=== PATIENT | male | born 1995 | race Caucasian/White ===

== ENCOUNTER → 2016-09-07 | Outpatient (CLI) | payer OTHER ==
--- NOTE | 2016-09-08 12:51 | SLEEPCENT ---
DATE OF PROCEDURE: 09/07/2016 REQUESTING PROVIDER: Katerin Bueno NP INTERPRETATION: Nocturnal polysomnography was performed due to concern for the obstructive sleep apnea syndrome in this patient with a history of excessive somnolence and morning headaches with nonrestorative sleep. 7 hours and 33 minutes of data were reviewed. There were 411 minutes of sleep identified. Sleep latency was normal at 19 minutes. Rapid eye movement (REM) latency was delayed at 297 minutes. Sleep architecture was fair with minimal fragmentation. Two REM periods were appreciated. Overall sleep efficiency 91.9%. The patient's electrocardiogram (EKG) showed a sinus rhythm with an average heart rate of 57 beats per minute. Electroencephalogram (EEG) showed essentially normal waveforms for awake and sleep. No focal events were identified. There was only one respiratory event identified of 10 seconds in duration or greater for an apnea-hypopnea index of 0.1, well within normal limits. Some snoring was appreciated. Arousals from respiratory events occurred 1.3 times per hour when arousals from snoring were included. There was some limb activity noted, but limb movement arousal index was only 4.4. Oxygen saturations remained normal. IMPRESSION: Normal nocturnal polysomnography with snoring.
== END ==
LOC: M SLEEP 19:45
PROVIDERS: ATTEND Nurse Practitioner Adult Health
DX: R06.83 Snoring (principal)

== ENCOUNTER 2016-12-02 17:58 | Emergency (ER) | payer OTHER ==
[~2016-12-02] VITALS: Ht 172.7 cm; Wt 86.0 kg
[2016-12-02] MEDS ORDERED: SUMA50TA2 PO (18:13)
[2016-12-02] MEDS ORDERED: PRAZ2CAP PO (18:13)
[2016-12-02] MEDS ORDERED: TOPA100T12 PO (18:13)
[2016-12-02] MEDS ORDERED: FLUO20CA8 PO (18:13)
[2016-12-02] MEDS ORDERED: OMEP20CA3 PO (18:13)
[2016-12-02] MEDS ORDERED: ESTR1TAB PO (18:13)
[2016-12-02] MEDS ORDERED: LUNE2TAB23 PO (18:13)
[2016-12-02] MEDS ORDERED: MELA3TAB49 PO (18:13)
[2016-12-02] MEDS ORDERED: SPIR50TA2 PO (18:13)
[2016-12-02 19:33] LABS: INR 1.07
[2016-12-02 19:47] LABS: BASO % 0.6 % (0.0-1.0); EOS # 0.2 K/mm3 (0.0-0.50); EOS % 2.2 % (0.0-3.0); LARGE UNSTAINED CELL # 0.1 K/mm3 (0.0-0.4); LARGE UNSTAINED CELL % 1.3 % (0.0-4.0); LYMPH # 1.9 K/mm3 (1.5-6.5); LYMPH % 19.4 % (24.0-44.0); MEAN CORPUSCULAR HEMOGLOBIN 32.2 pg (27.0-33.0); MEAN CORPUSCULAR HGB CONC 34.1 g/dl (32.0-36.5); MEAN CORPUSCULAR VOLUME 94.3 fl (80.0-96.0); MONO # 0.5 K/mm3 (0.0-0.8); MONO % 5.6 % (0.0-5.0); NEUTROPHILS # 6.4 K/mm3 (1.8-7.7); NEUTROPHILS % 70.9 % (36.0-66.0); PLATELET COUNT, AUTOMATED 199 k/mm3 (150-450); RED CELL DISTRIBUTION WIDTH 12.3 % (11.5-14.5)
[2016-12-02 19:57] LABS: ANION GAP 7 MEQ/L (8-16); BLOOD UREA NITROGEN 20 MG/DL (7-18); CALCIUM LEVEL 9.1 MG/DL (8.5-10.1); CARBON DIOXIDE LEVEL 23 MEQ/L (21-32); CHLORIDE LEVEL 112 MEQ/L (98-107); CREATININE FOR GFR 1.31 MG/DL (0.70-1.30); GLOMERULAR FILTRATION RATE > 60.0 (>60); GLUCOSE, FASTING 84 MG/DL (70-105); POTASSIUM SERUM 4.1 MEQ/L (3.5-5.1); SODIUM LEVEL 142 MEQ/L (136-145)
--- NOTE | 2016-12-02 22:07 | ECGEPIP ---
Stationary ECG Study [facility] - ED Test Date: 2016-12-02 Pat Name: MARVIN ZAPATA Department: Room: - Gender: M [employer]: mr : 1995 Requested By: PRIYANK Thompson Order Number: [id number] Reading MD: Ludmila Escobar Measurements Intervals [place] Rate: 63 P: 42 [place]: 145 QRS: 75 QRSD: 87 T: 37 QT: 392 QTc: 402 Interpretive Statements SINUS RHYTHM WITH SINUS ARRHYTHMIA NO PRIOR FOR COMPARISON Electronically Signed On 12-02-2016 22:06:47 EDT by Ludmila Escobar
[2016-12-02 23:07] VITALS: BP 111/58
--- NOTE | 2016-12-03 01:13 | REP ---
Clinical: Chest pain . Comparison: None . Technique: PA and lateral. Findings: The mediastinum and cardiac silhouette are normal. The lung kilpatrick are clear and without acute consolidation, effusion, or pneumothorax. The skeletal structures are intact and normal. Impression: 1. No acute cardiopulmonary process. Signed by Hai Miller MD 12/03/2016 01:05 A
== END 2016-12-02 23:25 | disposition home or self-care (01) ==
LOC: M ED 17:58
DX: R07.89 Other chest pain (principal); I49.9 Cardiac arrhythmia, unspecified; F32.9 Major depressive disorder, single episode, unspecified; F41.9 Anxiety disorder, unspecified; F17.210 Nicotine dependence, cigarettes, uncomplicated; Z79.899 Other long term (current) drug therapy

== ENCOUNTER → 2017-01-12 | Outpatient (REF) | payer OTHER ==
[~2017-01-12] MED LIST: ESTR1TAB PO; FLUO20CA8 PO; LUNE2TAB23 PO; MELA3TAB49 PO; OMEP20CA3 PO; PRAZ2CAP PO; SPIR50TA2 PO; SUMA50TA2 PO; TOPA100T12 PO
== END ==
LOC: M SMT 17:18
PROVIDERS: ATTEND Nurse Practitioner Women's Health
DX: N50.819 Testicular pain, unspecified (principal)
CPT/HCPCS: 81001; 87086; G0463

== ENCOUNTER → 2017-01-14 | Outpatient (CLI) | payer OTHER ==
--- NOTE | 2017-01-14 10:10 | REP ---
SCROTAL ULTRASOUND: Real-time sonographic evaluation of the scrotum and contents performed. The testicles are normal in size and echotexture, right testicle measuring 4.3 x 1.9 x 2.8 cm and the left testicle 4.3 x 2.0 x 2.6 cm. There is no testicular mass or torsion. Blood flow is seen in each testicle with duplex Doppler evaluation, RI right testicle is 0.57 and left testicle is 0.55. Right epididymis is unremarkable. Left epididymis demonstrates multiple tiny cysts up to 3 mm in diameter. There are very small bilateral hydroceles. IMPRESSION: Small cyst in the left epididymis. No testicular mass or torsion. Signed by Lopez Tatum MD 01/14/2017 03:12 P
== END ==
LOC: M SMT 09:00
PROVIDERS: ATTEND Nurse Practitioner Women's Health
DX: N50.819 Testicular pain, unspecified (principal); N50.3 Cyst of epididymis

== ENCOUNTER 2017-05-05 11:03 | Emergency (ER) | payer OTHER ==
[~2017-05-05] VITALS: Ht 172.7 cm; Wt 90.0 kg
[2017-05-05] MEDS ORDERED: ONDANSETRON 4MG/2ML VIAL (J2405) IV ONE (11:30)
[2017-05-05] MEDS ORDERED: MORPHINE 4 MG/ML 1ML SYRINGE IV ONE (11:30)
[2017-05-05 11:45] LABS: BASO % 0.4 % (0.0-1.0); EOS % 0.7 % (0.0-3.0); IMMATURE GRANULOCYTE % 0.4 % (0-0); LYMPH # 1.5 10^3/uL (1.5-6.5); LYMPH % 11.6 % (24.0-44.0); MEAN CORPUSCULAR HEMOGLOBIN 32.4 pg (27.0-33.0); MEAN CORPUSCULAR HGB CONC 35.7 g/dl (32.0-36.5); MEAN CORPUSCULAR VOLUME 90.6 fl (80.0-96.0); MONO # 0.8 10^3/uL (0.0-0.8); MONO % 6.1 % (0.0-5.0); NEUTROPHILS # 10.4 10^3/uL (1.8-7.7); NEUTROPHILS % 80.8 % (36.0-66.0); PLATELET COUNT, AUTOMATED 268 10^3/uL (150-450); RED CELL DISTRIBUTION WIDTH 11.6 % (11.5-14.5); WHITE BLOOD COUNT 12.8 10^3/uL (4.0-10.0)
[2017-05-05 11:46] LABS: BASO # 0.1 10^3/uL (0.0-0.2); EOS # 0.1 10^3/uL (0.0-0.50)
[2017-05-05 11:59] LABS: MUCUS, URINE RFX SMALL (NEGATIVE); SPECIFIC GRAVITY UR AUTO RFX 1.019 (1.002-1.035); SQUAM EPITHELIAL CELL UR AURFX 0 /HPF (0-6)
[2017-05-05 12:06] LABS: CREATININE FOR GFR 1.58 MG/DL (0.70-1.30); GLOMERULAR FILTRATION RATE 57.6 (>60); POTASSIUM SERUM 4.1 MEQ/L (3.5-5.1)
[2017-05-05] MEDS ORDERED: KETOROLAC 30 MG/ML VIAL (J1885) IV ONE (12:15)
--- NOTE | 2017-05-05 12:17 | REP ---
Scrotal ultrasound for testicular pain: Comparison is a 2016. The right testis measures 3.8 x 1.5 x 2.4 cm. Left testis 3.8 and 0.3 x 2.6 cm. The testes are normal size. The right epididymal head measures 7 mm diameter and the left epididymal head measures 6 mm diameter. The epididymal heads are normal size. There are no epididymal cysts. There are no testicular masses. There is no hydrocele. No varicocele. There is vascular flow in both testes with the Doppler resistive index of the intraparenchymal arteries on the right measuring 0.449, left 0.39. Impression: There are no testicular masses. There is vascular flow in both testes. No hydrocele or varicocele. Essentially negative scrotal ultrasound. Signed by Lopez Condon MD 05/05/2017 12:08 P
--- NOTE | 2017-05-05 12:26 | REP ---
CT of the abdomen pelvis without IV or bowel contrast: There are no comparison CT studies. However, the patient had a scrotal ultrasound earlier this same date. The visualized lung kilpatrick are unremarkable. The unenhanced hepatic parenchyma, gallbladder, pancreas and spleen are normal size and unremarkable. The adrenals are unremarkable. There is a 4 mm calcification in the proximal right ureter at the L for level. There is mild right hydronephrosis. There are no right renal calculi. There are no bladder calculi. There are no left renal or ureteral calculi. The abdominal aorta is unremarkable. Bowel loops are unremarkable. Mesentery is unremarkable. Pelvis: The appendix is unremarkable. The bladder is unremarkable. There is no adenopathy or ascites. The pelvic bowel loops are unremarkable. Impression: There is a 4 mm calculus in the proximal right ureter at the L4 level with mild right hydronephrosis. There are no renal calculi on the right or the left. There are no calculi in the left kidney. No bladder calculi. Otherwise, essentially negative CT of the abdomen and pelvis. Signed by Lopez Condon MD 05/05/2017 12:17 P
[2017-05-05] MEDS ORDERED: PERC5TAB12 PO (13:10)
[2017-05-05] MEDS ORDERED: FLOM5CAP PO (13:12)
[2017-05-05 13:23] VITALS: BP 130/90
== END 2017-05-05 13:25 | disposition home or self-care (01) ==
LOC: M ED 11:03
DX: N20.0 Calculus of kidney (principal); F64.9 Gender identity disorder, unspecified; F43.10 Post-traumatic stress disorder, unspecified; F17.210 Nicotine dependence, cigarettes, uncomplicated
CPT/HCPCS: 74176; 76870; 80048; 81001; 85025; 87491; 87591; 93976; 96374; 96375; 99284; J1885; J2405

== ENCOUNTER 2017-05-10 08:58 | Outpatient (RCR) | payer OTHER | END 2017-05-23 | LOC: M ST 08:58 | DX: Z51.89 Encounter for other specified aftercare (principal); F64.9 Gender identity disorder, unspecified ==

== ENCOUNTER → 2017-05-12 | Outpatient (CLI) | payer OTHER ==
[~2017-05-12] MED LIST changes: +FLOM5CAP PO; +PERC5TAB12 PO
--- NOTE | 2017-05-12 19:50 | REP ---
Clinical: Chronic renal disease stage III. Technique: Real time yanez scale ultrasound examination using curved array transducer. Findings: Bilateral kidneys are normal in contour, size, echogenicity, and reniform shape. No hydronephrosis, nephrolithiasis, cystic or renal mass lesion appreciated. No perinephric fluid collections are identified. Right kidney measures 11.0 x 5.9 x 4.4 cm. Left kidney measures 10.1 x 4.0 x 3.8 cm. Bladder is unremarkable and without wall thickening or mass lesion. Impression: Normal renal ultrasound. Signed by Hai Miller MD 05/12/2017 04:41 P
== END ==
LOC: M RAD 13:21
PROVIDERS: ATTEND Internal Medicine Nephrology
DX: N18.2 Chronic kidney disease, stage 2 (mild) (principal)